=== PATIENT | female | born 2000 | race Caucasian/White ===

== ENCOUNTER 2025-04-06 12:39 | Observation (INO) | payer OTHER ==
[2025-04-06] MEDS ORDERED: Ondansetron 4 MG/2 ML SDV IVPUSH PRN (12:54)
[2025-04-06] MEDS ORDERED: Lidocaine 1% 50 ML MDV INJECT PRN (12:54)
[2025-04-06] MEDS ORDERED: Sodium Chloride 0.9% 10 ML Syringe FLUSH PRN (12:54)
[2025-04-06 13:28] LABS: BASOPHILS PERCENT AUTO 0.3 % (0.0-1.0); EOSINOPHILS ABSOLUTE AUTO 0.1 K/mm3 (0.0-0.4); EOSINOPHILS PERCENT AUTO 0.4 % (0.0-6.0); HEMATOCRIT 40.7 % (37.0-47.0); HEMOGLOBIN 13.6 gm/dl (12.0-16.0); IMMATURE GRAN ABSOLUTE AUTO 0.06 K/mm3 (0.00-0.05); IMMATURE GRAN PERCENT AUTO 0.5 % (0.0-0.4); LYMPHOCYTES ABSOLUTE AUTO 1.8 K/mm3 (1.0-4.8); LYMPHOCYTES PERCENT AUTO 15.7 % (24.0-44.0); MEAN CORPUSCULAR HEMOGLOBIN 29.5 pg (28.0-32.0); MEAN CORPUSCULAR HGB CONC 33.4 g/dl (32.0-36.0); MEAN CORPUSCULAR VOLUME 88.3 fl (83.0-99.0); MEAN PLATELET VOLUME 10.7 fl (9.4-12.3); MONOCYTES ABSOLUTE AUTO 0.8 K/mm3 (0.0-0.8); MONOCYTES PERCENT AUTO 6.6 % (0.0-8.0); NEUTROPHILS ABSOLUTE AUTO 8.9 K/mm3 (1.8-7.7); NEUTROPHILS PERCENT AUTO 76.5 % (41.0-71.0); PLATELET COUNT,PLT 178 K/mm3 (150-400); RED BLOOD CELL COUNT 4.61 M/mm3 (4.10-5.30); WHITE BLOOD CELL COUNT,WBC 11.57 K/mm3 (3.9-11.3)
[2025-04-06] MEDS: Misoprostol 25 MCG (1/4 of 100 MCG) Tab PO PRN (14:16)
[2025-04-06] MEDS ORDERED: Oxytocin/0.9 % Sodium Chloride 30 UNIT/500 ML BAG IV ONE (14:20)
[2025-04-06] MEDS ORDERED: Sodium Chloride 0.9% 10 ML Syringe FLUSH SCH (21:00)
[2025-04-06] MEDS: Nalbuphine 10 MG/1 ML Vial IVPUSH PRN (22:02)
[2025-04-06] MEDS: Lactated Ringers 1,000 ML IV SCH (23:35)
[2025-04-07] MEDS ORDERED: diphenhydrAMINE 50 MG/ML SDV IVPUSH PRN ×2 (00:05→15:12)
[2025-04-07] MEDS ORDERED: ePHEDrine 50 MG/ML SDV IVPUSH PRN ×2 (00:05→15:24)
[2025-04-07] MEDS: Bupivacaine/fentaNYL/NS 100 ML Bag EPIDUR PRN (00:24)
[2025-04-07] MEDS: Oxytocin/0.9 % Sodium Chloride 30 UNIT/500 ML BAG IV SCH (09:33)
[2025-04-07] MEDS ORDERED: Sodium Chloride 0.9% 10 ML Syringe FLUSH PRN (13:11)
[2025-04-07] MEDS ORDERED: ceFAZolin 2 GM in Sodium Chloride 0.9% 50 ML IV ONE (13:11)
[2025-04-07] MEDS ORDERED: Lactated Ringers 1,000 ML IV SCH (13:15)
[2025-04-07] MEDS ORDERED: Ropivacaine 0.5% 5 MG/ML 30 ML SDV ONE (13:33)
[2025-04-07] MEDS ORDERED: ePHEDrine 50 MG/ML SDV ONE (13:34)
[2025-04-07] MEDS: Azithromycin 500 MG in Sodium Chloride 0.9% 250 ML IV ONE (13:38)
[2025-04-07] MEDS: Metoclopramide 10 MG/2 ML SDV IVPUSH ONE (13:39)
[2025-04-07] MEDS: Citric Acid/Sodium Citrate Solution 30 ML Cup PO ONE (13:39)
[2025-04-07] MEDS ORDERED: ceFAZolin 2 GM Vial ONE (14:01)
[2025-04-07] MEDS ORDERED: Morphine PF 10 MG/10 ML SDV ONE (14:24)
[2025-04-07] MEDS ORDERED: Meperidine 50 MG/ML Vial IVPUSH PRN (15:12)
[2025-04-07] MEDS ORDERED: fentaNYL 100 MCG/2 ML SDV IVPUSH PRN (15:12)
[2025-04-07] MEDS ORDERED: Ondansetron 4 MG/2 ML SDV IVPUSH PRN (15:12)
[2025-04-07] MEDS ORDERED: Measles, Mumps & Rubella Vaccine 0.5 ML SDV SUBCUT ONE (15:24)
[2025-04-07] MEDS ORDERED: Naloxone 0.4 MG/ML SDV IVPUSH PRN (15:24)
[2025-04-07] MEDS ORDERED: Dextrose 5%-Lactated Ringers 1,000 ML IV SCH (15:30)
[2025-04-07] MEDS: Labetalol 100 MG/20 ML MDV IVPUSH ONE (16:48)
[2025-04-07] MEDS: Acetaminophen 325 MG Tab PO SCH (16:51)
[2025-04-07 17:07] LABS: BASOPHILS ABSOLUTE AUTO 0.1 K/mm3 (0.0-0.2); BASOPHILS PERCENT AUTO 0.2 % (0.0-1.0); HEMATOCRIT 38.7 % (37.0-47.0); HEMOGLOBIN 12.7 gm/dl (12.0-16.0); IMMATURE GRAN ABSOLUTE AUTO 0.21 K/mm3 (0.00-0.05); IMMATURE GRAN PERCENT AUTO 0.8 % (0.0-0.4); LYMPHOCYTES ABSOLUTE AUTO 1.4 K/mm3 (1.0-4.8); LYMPHOCYTES PERCENT AUTO 5.7 % (24.0-44.0); MEAN CORPUSCULAR HEMOGLOBIN 28.9 pg (28.0-32.0); MEAN CORPUSCULAR HGB CONC 32.8 g/dl (32.0-36.0); MEAN PLATELET VOLUME 11.1 fl (9.4-12.3); MONOCYTES PERCENT AUTO 8.1 % (0.0-8.0); NEUTROPHILS ABSOLUTE AUTO 21.4 K/mm3 (1.8-7.7); NEUTROPHILS PERCENT AUTO 85.2 % (41.0-71.0); PLATELET COUNT,PLT 165 K/mm3 (150-400); WHITE BLOOD CELL COUNT,WBC 25.06 K/mm3 (3.9-11.3)
[2025-04-07 17:25] LABS: A/G RATIO 0.6 (1-2); ALBUMIN 2.1 g/dl (3.4-5.0); ANION GAP 14.6 (5-15); BILIRUBIN TOTAL 0.6 mg/dL (0.2-1.0); BUN/CREATININE RATIO 12.3 (14-18); CALCIUM 8.6 mg/dL (8.5-10.1); CREATININE 1.3 mg/dL (0.55-1.02); EST CRCL DRUG DOSING (CG) 54.25 mL/min; POTASSIUM,K 3.6 mEq/L (3.5-5.1); PROTEIN TOTAL,TP 5.5 g/dl (6.4-8.2)
[2025-04-07 17:53] LABS: SLIDE REVIEW ABNORMAL SMEAR
[2025-04-07 17:56] LABS: PROTEIN,URINE RANDOM 11.2 mg/dL (0.0-11.8)
[2025-04-07 17:59] LABS: CREATININE,URINE RAND < 13.0 mg/dL (30.0-125.0)
[2025-04-07] MEDS ORDERED: Sodium Chloride 0.9% 10 ML Syringe FLUSH SCH (21:00)
[2025-04-07] MEDS: Sennosides 8.6 MG Tab PO SCH (22:56)
[2025-04-08] MEDS: diphenhydrAMINE 50 MG/ML SDV IVPUSH PRN (00:07)
[2025-04-08 05:40] LABS: HEMATOCRIT 34.4 % (37.0-47.0); HEMOGLOBIN 11.4 gm/dl (12.0-16.0); MEAN CORPUSCULAR HEMOGLOBIN 29.6 pg (28.0-32.0); MEAN CORPUSCULAR HGB CONC 33.1 g/dl (32.0-36.0); MEAN CORPUSCULAR VOLUME 89.4 fl (83.0-99.0); MEAN PLATELET VOLUME 10.9 fl (9.4-12.3); PLATELET COUNT,PLT 144 K/mm3 (150-400); RED BLOOD CELL COUNT 3.85 M/mm3 (4.10-5.30); WHITE BLOOD CELL COUNT,WBC 18.76 K/mm3 (3.9-11.3)
[2025-04-08 06:12] LABS: A/G RATIO 0.6 (1-2); ALBUMIN 1.8 g/dl (3.4-5.0); ANION GAP 10.6 (5-15); BILIRUBIN TOTAL 0.4 mg/dL (0.2-1.0); BUN/CREATININE RATIO 14.4 (14-18); CALCIUM 8.1 mg/dL (8.5-10.1); CREATININE 0.9 mg/dL (0.55-1.02); EST CRCL DRUG DOSING (CG) 78.36 mL/min; POTASSIUM,K 3.6 mEq/L (3.5-5.1)
[2025-04-08] MEDS: oxyCODONE 5 MG Tab PO PRN (07:37)
[2025-04-08] MEDS: Acetaminophen 325 MG Tab PO SCH (15:47)
[2025-04-08] MEDS: Cetirizine 10 MG Tab PO SCH (15:56)
[2025-04-08] MEDS: Simethicone 80 MG Tab.Chew PO ONE (22:04)
[2025-04-08] MEDS: oxyCODONE 5 MG Tab PO ONE (22:04)
[2025-04-08] MEDS: diphenhydrAMINE 25 MG Cap PO ONE (22:42)
== END 2025-04-09 17:23 | disposition home or self-care (01) ==
LOC: JD.OBCHECK 12:39 → JD.OB 12:55 → JD.OBCHECK 13:00 → JD.OB 13:01
PROVIDERS: ADMIT Obstetrics & Gynecology; ATTEND Obstetrics & Gynecology
DX: O82 Encounter for cesarean delivery without indication (principal); O62.1 Secondary uterine inertia; Z3A.40 40 weeks gestation of pregnancy; Z37.0 Single live birth
CPT/HCPCS: 36415; 51702; 59025; 59514; 80053; 82570; 84156; 85025; 85027; 86592; 86850; 86900; 86901; A9270; J0456; J0690; J1200; J1920; J2274; J2300; J2765; J2795; J7050; J7120; J7999; 01967; 01968; J3490